=== PATIENT | female | born 1965 | race Caucasian/White ===

== ENCOUNTER 2017-08-22 08:18 | Emergency (ER) | payer OTHER ==
[~2017-08-22] VITALS: Ht 162.6 cm; Wt 68.0 kg
[2017-08-22 08:31] LABS: URINE BILIRUBIN NEGATIVE (Negative); URINE BLOOD NEGATIVE (Negative); URINE CLARITY CLEAR; URINE COLOR YELLOW; URINE GLUCOSE-RANDOM NEGATIVE (Negative); URINE KETONES NEGATIVE (Negative); URINE LEUKOCYTES-REFLEX 1+ (Negative); URINE NITRITE-REFLEX NEGATIVE (Negative); URINE PROTEIN NEGATIVE (Negative); URINE UROBILINOGEN 0.2 E.U./dl (0.2-1.0)
[2017-08-22] MEDS ORDERED: CELEXA20 MG PO (08:32)
[2017-08-22 08:42] LABS: SQUAMOUS 0-3 Few /LPF (0-3)
[2017-08-22 08:43] LABS: BACTERIA-REFLEX None Seen /HPF (None Seen); MUCUS None Seen strn/LPF (None Seen); URINE RBC 0-2 Rare /HPF (0-2); URINE WBC-REFLEX 6-15 Few /HPF (0-5)
[2017-08-22 08:44] LABS: CASTS None Seen /LPF (None Seen); CRYSTALS None Seen /LPF (None Seen)
[2017-08-22 08:57] LABS: HEMOGLOBIN 12.5 gm/dL (12.0-15.0); MCHC 32.9 g/dL (28.0-37.0); MCV 91.1 fL (80.0-100.0); MPV 8.6 fl. (7.2-11.1); NUCLEATED RBCS 0 /100WBC; PLATELET COUNT* 229 thou/uL (150-400); RBC 4.17 mil/uL (4.20-5.00); RDW-CV 12.8 % (10.5-14.5); WBC 19.4 thou/uL (4.0-11.0)
[2017-08-22 09:01] LABS: CALCIUM 8.3 mg/dL (8.5-10.1); CREATININE 0.9 mg/dL (0.6-1.3); POTASSIUM 3.6 mmol/L (3.5-5.1)
[2017-08-22 09:05] LABS: ALBUMIN 3.4 g/dL (3.4-5.0); TOTAL BILIRUBIN 0.2 mg/dL (<0.1-1.0); TOTAL PROTEIN 6.7 g/dL (6.4-8.2)
[2017-08-22] MEDS ORDERED: LEVAQUIN 500 M500 MG PO (10:16)
[2017-08-22] MEDS ORDERED: NORCO 5-325 TA1 EACH PO (10:19)
[2017-08-22] MEDS ORDERED: PHENERGAN 25 MG25 M1 PO (10:19)
[2017-08-22 10:20] LABS: ABSOLUTE NEUTROPHILS 17.5 thou/uL (1.6-8.1)
[2017-08-22 10:21] LABS: MACROCYTES Occasional; PLATELET ESTIMATE ADEQUATE
[2017-08-22 11:36] VITALS: BP 96/40
== END 2017-08-22 11:37 | disposition home or self-care (01) ==
LOC: M.ERS 08:18
PROVIDERS: Personal Emergency Response Attendant
DX: N12 Tubulo-interstitial nephritis, not specified as acute or chronic (principal); F32.9 Major depressive disorder, single episode, unspecified; Z88.1 Allergy status to other antibiotic agents; Z88.5 Allergy status to narcotic agent; Z87.442 Personal history of urinary calculi